=== PATIENT | female | born 1940 | race Caucasian/White ===

== ENCOUNTER 2018-04-30 16:58 | Emergency (ER) | payer MEDICARE ==
[2018-04-30] MEDS ORDERED: NORMAL SALINE 1000 ML 1,000 ML IV ONE (17:43)
--- NOTE | 2018-04-30 17:46 | ER Document Report ---
ED Medical Screen (RME) - General Chief Complaint: General Weakness Stated Complaint: FAILURE TO THRIVE Time Seen by Provider: 04/30/18 17:27 TRAVEL OUTSIDE OF THE [place] IN LAST 30 DAYS: No - HPI Patient complains to provider of: Labile blood sugars and fatigue Onset: Other - This 77-year-old female has a extensive past medical history significant for gastric cancer with a fistula as well as diabetes which is been poorly controlled decreased appetite over the last several weeks and now 20 pounds of weight loss over the last month. She has had terrible persistent pain from an inability to control her blood sugars eat or drink. Her daughter is concerned because it seems like her mother is declining. - Related Data Allergies/Adverse Reactions: hydrocodone [Hydrocodone] Allergy (Severe, Verified 04/30/18 17:41) Anxiety Past Medical History - Social History Chew tobacco use (# tins/day): No Frequency of alcohol use: None Drug Abuse: None - Past Medical History Cardiac Medical History: Reports: Hx Hypertension - on meds Denies: Hx Atrial Fibrillation, Hx Congestive Heart Failure, Hx Coronary Artery Disease, Hx Heart Attack, Hx Hypercholesterolemia, Hx Peripheral Vascular Disease, Hx Pulmonary Embolism, Hx Heart Murmur Pulmonary Medical History: Reports: Hx COPD, Hx Pneumonia - hx of Denies: Hx Asthma, Hx Bronchitis, Hx Respiratory Failure, Hx Sleep Apnea, Hx Tuberculosis Neurological Medical History: Endocrine Medical History: Reports: Hx Diabetes Mellitus Type 2. Denies: Hx Graves' Disease, Hx Hyperthyroidism, Hx Hypothyroidism Renal/ Medical History: Denies: Hx Peritoneal Dialysis Malignancy Medical History: Denies: Hx Lung Cancer GI Medical History: Reports: Hx Diverticulitis, Hx Gastroesophageal Reflux Disease. Denies: Hx Crohn's Disease, Hx Hepatitis, Hx Hiatal Hernia, Hx Irritable Bowel, Hx Liver Failure, Hx Pancreatitis, Hx Ulcer Musculoskeltal Medical History: Reports Hx Arthritis - generalized, Denies Hx Fibromyalgia, Denies Hx Muscular Dystrophy Psychiatric Medical History: Reports: Hx Depression Denies: Hx Bipolar Disorder, Hx Post Traumatic Stress Disorder, Hx Schizophrenia Traumatic Medical History: Denies: Hx Fractures Infectious Medical History: Denies: Hx Hepatitis Past Surgical History: Reports: Hx Abdominal Surgery, Hx Appendectomy, Hx Cholecystectomy, Hx Colostomy, Hx Herniorrhaphy, Hx Hysterectomy. Denies: Hx Bowel Surgery, Hx Section, Hx Gastric Bypass Surgery, Hx Mastectomy, Hx Open Heart Surgery, Hx Pacemaker, Hx Tubal Ligation - Immunizations Hx Diphtheria, Pertussis, Tetanus Vaccination: No Physical Exam - Vital signs Vitals: Temp Resp BP Pulse Ox 98.2 F 20 113/64 96 04/30/18 17:09 04/30/18 17:09 04/30/18 17:09 04/30/18 17:09 Course - Re-evaluation Re-evalutation: 04/30/18 17:45 This 77-year-old female with past medical history significant for gastric cancer as well as multiple other health problems presents for evaluation of labile blood sugars and fatigue. Her abdominal examination is remarkable for diffuse tenderness throughout, she has had episodes of vomiting as well. Given that she is got a history with abnormal anatomy multiple instrumentations through the abdomen and pelvis will investigate for potential fistula development. We will obtain screening labs as well as this patient may have electrolyte deficiency because of her decreased p.o. intake. We will plan to check Accu-Chek as well because of her inability to control her blood sugars at home. Patient be further evaluated disposition through the main emergency department. - Vital Signs Vital signs: Temp Pulse Resp BP Pulse Ox 98.2 F 20 113/64 96 04/30/18 17:09 04/30/18 17:09 04/30/18 17:09 04/30/18 17:09 Doctor's Discharge - Discharge Referrals: JOLYNN HOYT MD [Primary Care Provider] - Follow up as needed
[2018-04-30 18:31] LABS: ABSOLUTE BASOPHILS # (AUTO) 0.1 10^3/uL (0.0-0.2); ABSOLUTE LYMPHOCYTES (AUTO) 2.7 10^3/uL (0.5-4.7); ABSOLUTE MONOCYTES (AUTO) 1.3 10^3/uL (0.1-1.4); ABSOLUTE NEUT (AUTO) 9.2 10^3/uL (1.7-8.2); BASOPHILS % (AUTO) 0.4 % (0-2); EOSINOPHILS % (AUTO) 0.2 % (0-6); HEMATOCRIT 49.4 % (36.0-47.0); HEMOGLOBIN 16.8 g/dL (12.0-15.5); LYMPHOCYTES % (AUTO) 20.2 % (13-45); MEAN CORPUSCULAR HEMOGLOBIN 31.2 pg (27.0-33.4); MEAN CORPUSCULAR VOLUME 92 fl (80-97); MONOCYTES % (AUTO) 9.7 % (3-13); PLATELET COUNT 381 10^3/uL (150-450); RED BLOOD COUNT 5.38 10^6/uL (3.72-5.28); RED CELL DISTRIBUTION WIDTH 15.5 % (11.5-14.0); SEGMENTED NEUTROPHILS % (AUTO) 69.5 % (42-78); TOTAL CELLS COUNTED % (AUTO) 100 %; WHITE BLOOD COUNT 13.3 10^3/uL (4.0-10.5)
[2018-04-30 18:46] LABS: AMORPHOUS SEDIMENT,URINE TRACE /HPF; APPEARANCE,URINE CLOUDY; BILIRUBIN,URINE NEGATIVE (NEGATIVE); COLOR,URINE AMBER; GLUCOSE, URINE NEGATIVE (NEGATIVE); KETONES,URINE TRACE mg/dL (NEGATIVE); LEUKOCYTE ESTERASE,URINE MODERATE (NEGATIVE); NITRITE,URINE NEGATIVE (NEGATIVE); PROTEIN,URINE NEGATIVE (NEGATIVE)
[2018-04-30] MEDS ORDERED: OXYCODONE-ACETAMINOPHEN 5-325 MG TABLET PO ONE (18:57)
--- NOTE | 2018-04-30 19:31 | ER Document Report ---
ED General - General Chief Complaint: General Weakness Stated Complaint: FAILURE TO THRIVE Time Seen by Provider: 04/30/18 17:27 Notes: Patient is a 77-year-old female with a past medical history of type 2 diabetes, hypertension, prior gastric malignancy, prior gastric perforation who presents with multiple complaints. Her main concern is that the she is having variable blood sugars but is most concerned about periods of hypoglycemia. She has been taking all medications as prescribed by her general doctor. She has not been able to contact her general doctor regarding these concerns as he is currently out of town. The patient apparently today had another episode of generalized abdominal pain. The patient has been having similar episodes of abdominal pain since having surgery for a gastric perforation in November of this year. She states that nothing was also different regarding today's episode abdominal pain which she describes as a cramping, aching, diffuse pain that has now mostly resolved. The pain is triggered or worsened by periods of oral intake. Nothing seems to improve the pain. She has not followed up with her surgeon or GI regarding this ongoing issue. TRAVEL OUTSIDE OF THE [place] IN LAST 30 DAYS: No - Related Data Allergies/Adverse Reactions: hydrocodone [Hydrocodone] Allergy (Severe, Verified 04/30/18 17:41) Anxiety Past Medical History - General Information source: Patient - Social History Smoking Status: Never Smoker Chew tobacco use (# tins/day): No Frequency of alcohol use: None Drug Abuse: None Lives with: Family Family History: Reviewed & Not Pertinent Patient has suicidal ideation: No Patient has homicidal ideation: No - Past Medical History Cardiac Medical History: Reports: Hx Hypertension - on meds Denies: Hx Atrial Fibrillation, Hx Congestive Heart Failure, Hx Coronary Artery Disease, Hx Heart Attack, Hx Hypercholesterolemia, Hx Peripheral Vascular Disease, Hx Pulmonary Embolism, Hx Heart Murmur Pulmonary Medical History: Reports: Hx COPD, Hx Pneumonia - hx of Denies: Hx Asthma, Hx Bronchitis, Hx Respiratory Failure, Hx Sleep Apnea, Hx Tuberculosis Neurological Medical History: Endocrine Medical History: Reports: Hx Diabetes Mellitus Type 2. Denies: Hx Graves' Disease, Hx Hyperthyroidism, Hx Hypothyroidism Renal/ Medical History: Denies: Hx Peritoneal Dialysis Malignancy Medical History: Denies: Hx Lung Cancer GI Medical History: Reports: Hx Diverticulitis, Hx Gastroesophageal Reflux Disease. Denies: Hx Crohn's Disease, Hx Hepatitis, Hx Hiatal Hernia, Hx Irritable Bowel, Hx Liver Failure, Hx Pancreatitis, Hx Ulcer Musculoskeletal Medical History: Reports Hx Arthritis - generalized, Denies Hx Fibromyalgia, Denies Hx Muscular Dystrophy Psychiatric Medical History: Reports: Hx Depression Denies: Hx Bipolar Disorder, Hx Post Traumatic Stress Disorder, Hx Schizophrenia Traumatic Medical History: Denies: Hx Fractures Infectious Medical History: Denies: Hx Hepatitis Past Surgical History: Reports: Hx Abdominal Surgery, Hx Appendectomy, Hx Cholecystectomy, Hx Colostomy, Hx Herniorrhaphy, Hx Hysterectomy. Denies: Hx Bowel Surgery, Hx Section, Hx Gastric Bypass Surgery, Hx Mastectomy, Hx Open Heart Surgery, Hx Pacemaker, Hx Tubal Ligation - Immunizations Hx Diphtheria, Pertussis, Tetanus Vaccination: No Review of Systems - Review of Systems Notes: Constitutional: Negative for fever. Positive for weight loss. HENT: Negative for sore throat. Eyes: Negative for visual changes. Cardiovascular: Negative for chest pain. Respiratory: Negative for shortness of breath. Gastrointestinal: Positive for abdominal pain, vomiting and diarrhea Genitourinary: Negative for dysuria. Musculoskeletal: Negative for back pain. Skin: Negative for rash. Neurological: Negative for headaches, weakness or numbness. 10 point ROS negative except as marked above and in HPI. Physical Exam - Vital signs Vitals: Temp Resp BP Pulse Ox 98.2 F 20 113/64 96 04/30/18 17:09 04/30/18 17:09 04/30/18 17:09 04/30/18 17:09 Interpretation: Normal Notes: PHYSICAL EXAMINATION: GENERAL: Well-appearing, well-nourished and in no acute distress. HEAD: Atraumatic, normocephalic. EYES: Pupils equal round and reactive to light, extraocular movements intact, sclera anicteric, conjunctiva are normal. ENT: nares patent, oropharynx clear without exudates. Mild dry mucous membranes. NECK: Normal range of motion, supple without lymphadenopathy LUNGS: Breath sounds clear to auscultation bilaterally and equal. No wheezes rales or rhonchi. HEART: Regular rate and rhythm without murmurs ABDOMEN: Soft, nontender, normoactive bowel sounds. No guarding, no rebound. No masses appreciated. EXTREMITIES: Normal range of motion, no pitting or edema. No cyanosis. NEUROLOGICAL: No focal neurological deficits. Moves all extremities spontaneously and on command. PSYCH: Normal mood, normal affect. SKIN: Warm, Dry, normal turgor, no rashes or lesions noted. Course - Re-evaluation Re-evalutation: 04/30/18 19:24 Patient presents with multiple, chronic complaints. 1. Variable blood sugars: The patient reports that she has highly variable blood sugars but is most concerned about periods of hypoglycemia particularly in the morning where she is dipping down into ranges of 20-50. Family also reports near syncopal episodes in the context of hypoglycemia. She takes metformin, glimepiride, Lantus. I have instructed the patient to discontinue glimepiride and Lantus as the risk of hypoglycemia far outweighs a short period of mild hyperglycemia and have encouraged him to follow-up with their primary doctor regarding long-term management of her blood sugar medications. 2. Chronic abdominal pain, anorexia: The patient reports since having a gastric perforation in November that she has had chronic generalized abdominal discomfort with pain with oral intake. She has had a 20 pound weight loss over that period of time. The patient states that nothing is necessarily new or different about the pain today but that she feels like she is wasting away. The family has requested imaging of her abdomen and pelvis which will be performed per the request. She has no focal abdominal tenderness, rebound or guarding. Low clinical suspicion for acute pathology although concerns for underlying malignancy, gastric narrowing, versus gastroparesis are high. 04/30/18 21:32 CT the abdomen pelvis is noted to be unremarkable. Patient has continued to do well here in the emergency department. He is tolerating oral intake without difficulty. At this time will discharge with return precautions and follow-up recommendations. Verbal discharge instructions given a the bedside and opportunity for questions given. Medication warnings reviewed. Patient is in agreement with this plan and has verbalized understanding of return precautions and the need for primary care follow-up in the next 24-72 hours. - Vital Signs Vital signs: Temp Pulse Resp BP Pulse Ox 98.2 F 20 113/64 96 04/30/18 17:09 04/30/18 17:09 04/30/18 17:09 04/30/18 17:09 - Laboratory Result Diagrams: 04/30/18 17:59 04/30/18 19:26 Laboratory results interpreted by me: 04/30/18 04/30/18 04/30/18 17:59 17:59 18:03 WBC 13.3 H RBC 5.38 H Hgb 16.8 H Hct 49.4 H RDW 15.5 H Absolute Neutrophils 9.2 H Potassium Chloride Carbon Dioxide Creatinine Glucose POC Glucose 201 H Urine Ketones TRACE H Urine Urobilinogen 4.0 H Ur Leukocyte Esterase MODERATE H 04/30/18 19:26 WBC RBC Hgb Hct RDW Absolute Neutrophils Potassium 3.3 L Chloride 94 L Carbon Dioxide 31 H Creatinine 0.47 L Glucose 175 H POC Glucose Urine Ketones Urine Urobilinogen Ur Leukocyte Esterase - Diagnostic Test Radiology reviewed: Reports reviewed Discharge - Discharge Clinical Impression: Chronic abdominal pain, Weight loss Type 2 diabetes mellitus Qualifiers: Diabetes mellitus halfway insulin use: with ad terminal makeup operator use Diabetes mellitus complication status: with unspecified complications Qualified Code(s): E11.8 - Type 2 diabetes mellitus with unspecified complications; Z79.4 - custodial ( current) use of insulin; Z79.4 - custodial (current) use of insulin; Z79.4 - custodial (current) use of insulin; Z79.4 - watermelon inspector (current) use of insulin Nausea and vomiting Qualifiers: Vomiting type: unspecified Vomiting Intractability: non-intractable Qualified Code(s): R11.2 - Nausea with vomiting, unspecified Condition: Good Disposition: HOME, SELF-CARE Additional Instructions: In regards to your variable blood sugars: Discontinue Lantus and glimepiride. Take only metformin. Please check your blood sugar 3 times daily for the next 3 days. If your blood sugars are consistently greater than 200 please restart the glimepiride. Your CT scan of the abdomen pelvis is normal today. As we discussed, you need to follow-up with a GI doctor for consideration of endoscopy and colonoscopy given your chronic nausea and abdominal pain.Please begin taking famotidine 40 mg in the morning and 40 mg at night. This medicine can be purchased directly [id number]. Please also take Carafate before meals. Please return to emergency department immediately if you have worsening of your pain, shortness of breath, vomiting, become unable to exert yourself due to pain or difficulty breathing, you pass out, or have any pain that radiates into your arms, jaw, or back. Please also return if you have any additional symptoms that are concerning to you. Prescriptions: Sucralfate [Carafate 1 gm Tablet] 1 gm PO ACHS #120 tablet Referrals: JOLYNN HOYT MD [NO LOCAL MD] - Follow up as needed
[2018-04-30 19:56] LABS: ALANINE AMINOTRANSFERASE 18 U/L (9-52); ALKALINE PHOSPHATASE 71 U/L (38-126); ANION GAP 13 (5-19); ASPARTATE AMINO TRANSFERASE 16 U/L (14-36); BILIRUBIN,DIRECT 0.3 mg/dL (0.0-0.4); BILIRUBIN,TOTAL 0.5 mg/dL (0.2-1.3); BLOOD UREA NITROGEN 13 mg/dL (7-20); CALCIUM 9.7 mg/dL (8.4-10.2); CARBON DIOXIDE 31 mmol/L (22-30); CHLORIDE 94 mmol/L (98-107); GLUCOSE 175 mg/dL (75-110); LIPASE 35.9 U/L (23-300); POTASSIUM 3.3 mmol/L (3.6-5.0); SODIUM 137.8 mmol/L (137-145); TOTAL PROTEIN 7.3 g/dL (6.3-8.2)
--- NOTE | 2018-04-30 21:16 | RADIOLOGY REPORT (SQ) ---
EXAM DESCRIPTION: CT ABD/PELVIS WITH IV ORAL COMPLETED DATE/TIME: 04/30/2018 8:37 pm REASON FOR STUDY: generalized abdominal pain, vomiting COMPARISON: 11/12/2014 TECHNIQUE: CT scan of the abdomen and pelvis performed using helical scanning technique with dynamic intravenous contrast injection. No oral contrast. Images reviewed with lung, soft tissue, and bone w indows. Reconstructed coronal and sagittal MPR images reviewed. Delayed images for evaluation of the urinary system also acquired. All images stored on PACS. All CT scanners at this facility use dose modulation, iterative reconstruction, and/or weight based d osing when appropriate to reduce radiation dose to as low as reasonably achievable (ALARA). [facility]: Dose Right [facility]: CareDose [facility]: Dose Right [facility]: Teradose 4D [facility]: Ascendify CONTRAST TYPE AND DOSE: contrast/concentration: Isovue 350.00 mg/ml; Total Contrast Delivered: 66.0 ml; Total Saline Delivered: 65.0 ml RENAL FUNCTION: GFR > 60. RADIATION DOSE: CT Rad equipment meets quality standard of care and radiation dose reduction techniq ues were employed. CTDIvol: 7.1 - 9.9 mGy. DLP: 896 mGy-cm.. LIMITATIONS: None. FINDINGS: LOWER CHEST: No acute findings. LIVER: Normal size. No enhancing masses. Similar minimally dilated ducts. SPLEEN: Normal size. No focal lesions. PANCREAS: No masses identified. No significant calcifications. No adjacent inflammation or peripancre atic fluid collections. Pancreatic duct not dilated. GALLBLADDER: Surgically absent. ADRENAL GLANDS: No significant masses. RIGHT KIDNEY AND URETER: No cysts identified. No solid masses identified. No calcified stones. No hyd ronephrosis or hydroureter. LEFT KIDNEY AND URETER: No cysts identified. No solid masses identified. No calcified stones. No hydr onephrosis or hydroureter. AORTA AND VESSELS: No aneurysm. No dissection. Renal arteries, SMA, celiac without significant stenos is. RETROPERITONEUM: No bulky retroperitoneal adenopathy. BOWEL AND PERITONEAL CAVITY: No obstruction or inflammatory changes. No free fluid. APPENDIX: Not visualized. PELVIS: Prior hysterectomy. No free fluid. Unremarkable bladder. ABDOMINAL WALL: No masses. No hernias. BONES: No acute findings. OTHER: No other significant finding. IMPRESSION: NO ACUTE FINDINGS IN THE ABDOMEN OR PELVIS ON CT SCAN WITH IV CONTRAST. TECHNICAL DOCUMENTATION: JOB ID: [id number] Quality ID # [id number]: Final reports with documentation of one or more dose reduction techniques (e.g., Au tomated exposure control, adjustment of the mA and/or kV according to patient size, use of iterative reconstruction technique) 2010 [employer]- All Rights Reserved Reading location - IP/workstation name: [email or web address]
[2018-04-30 22:19] VITALS: BP 117/92
== END 2018-04-30 22:19 | disposition home or self-care (01) ==
LOC: ER 16:58
DX: R10.84 Generalized abdominal pain (principal); G89.29 Other chronic pain; R11.2 Nausea with vomiting, unspecified; E11.649 Type 2 diabetes mellitus with hypoglycemia without coma; Z79.4 Long term (current) use of insulin; J44.9 Chronic obstructive pulmonary disease, unspecified; R19.7 Diarrhea, unspecified; R63.0 Anorexia; I10 Essential (primary) hypertension; Z79.899 Other long term (current) drug therapy
CPT/HCPCS: 99284; 96360; 96361; 36415; 87086; 82962; 83690; 85025; 87088; 80053; 81001; 87186; 74177; A9270; J7030

== ENCOUNTER 2019-01-03 10:08 | Day surgery (SDC) | payer MEDICARE ==
[2018-12-27 09:05] LABS: HEMATOCRIT 40.7 % (36.0-47.0); HEMOGLOBIN 13.9 g/dL (12.0-15.5); MEAN CORPUSCULAR HGB CONC 34.1 g/dL (32.0-36.0); MEAN CORPUSCULAR VOLUME 94 fl (80-97); PLATELET COUNT 289 10^3/uL (150-450); RED BLOOD COUNT 4.34 10^6/uL (3.72-5.28); RED CELL DISTRIBUTION WIDTH 15.2 % (11.5-14.0); WHITE BLOOD COUNT 10.3 10^3/uL (4.0-10.5)
[2018-12-27 11:02] LABS: ANION GAP 11 (5-19); BLOOD UREA NITROGEN 19 mg/dL (7-20); CALCIUM 9.5 mg/dL (8.4-10.2); CARBON DIOXIDE 28 mmol/L (22-30); CHLORIDE 100 mmol/L (98-107); GLUCOSE 236 mg/dL (75-110); POTASSIUM 3.9 mmol/L (3.6-5.0); SODIUM 139.2 mmol/L (137-145)
--- NOTE | 2018-12-27 12:27 | EKG REPORT ---
SEVERITY:- BORDERLINE ECG - SINUS TACHYCARDIA LOW VOLTAGE PRECORDIAL LEADS. PACS : Confirmed by: Philippe Sepulveda MD 27-Dec-2018 12:26:50
[~2019-01-03 10:08] MED LIST: ACETAMINOPHEN 325 MG TABLET PO PRN; LACTATED RINGERS 1000 ML IV PRN; LIDOCAINE 0.5% INJ-PF (5 MG/ML) 50 ML SDV SUBCUT PRN; NORMAL SALINE 1000 ML 1,000 ML IV PRN
[2019-01-03 11:31] LABS: INTERNATIONAL RATION (INR) 1.06; PROTHROMBIN TIME 14.3 SEC (11.4-15.4)
[2019-01-03 11:32] LABS: PARTIAL THROMBOPLASTIN TIME 28.9 SEC (23.5-35.8)
[2019-01-03] MEDS ORDERED: PROPOFOL INJ 200 MG/20 ML VIAL IV ONE (12:28)
[2019-01-03] MEDS ORDERED: MEPERIDINE HCL/PF INJ 25 MG/1 ML DISP.SYRIN IV PRN (12:59)
[2019-01-03] MEDS ORDERED: PROMETHAZINE HCL INJ 25 MG/1 ML VIAL IV PRN (12:59)
[2019-01-03] MEDS ORDERED: DIPHENHYDRAMINE HCL 50 MG/ML VIAL IV PRN (12:59)
--- NOTE | 2019-01-03 13:12 | Discharge Summary ---
Discharge Summary (SDC) - Discharge Final Diagnosis: residual tubular adenoma Date of Surgery: 01/03/19 Discharge Date: 01/03/19 Condition: Good Forms: ASU Anesthesia D/C Instruction, Discharge POC-Surgical Service Treatment or Instructions: [address] [address] POST ENDOSCOPY DISCHARGE INSTRUCTIONS 1. Diet: Start clear liquids that a regular diet as tolerated. 2. Resume all preoperative medications. All oral anticoagulants and aspirins can be resumed 24 hours after procedure. 3. If a polypectomy was performed some bleeding per rectum may occur. This should stop within 3 days. If not, please contact the office. 4. If you had a colonoscopy you may experience some bloating and delayed return of normal bowel function for several days, your regular bowel movement pattern should resume within a week. 5. Please contact [facility] at to make an appointment with Dr. Forrester for 1 to 3 weeks following procedure. 6. If you have any questions or concerns regarding your care,treatment plan or follow up, please contact our office. 7. Repeat colonoscopy will be determined based off path report. Referrals: NASIR FORRESTER MD [ACTIVE STAFF] - Discharge Diet: Other (Comments) - clear liquids then progress Discharge Activity: Balance Activity w/Rest, No Lifting Over 10 Pounds, Walk Frequently Report the Following to Your Physician Immediately: Nausea, Vomiting, Increase in Pain, Fever over 101 Degrees, Unusual Bleeding, Drainage-Foul Smelling
--- NOTE | 2019-01-03 13:19 | Operative Report ---
Operative Report DATE OF SURGERY: 01/03/19 PREOPERATIVE DIAGNOSIS: 1. History of sigmoid colectomy colostomy colostomy ta [place] for diverticular disease. 2. History of colon polyps with partial endoscopic removal of tubular adenoma POSTOPERATIVE DIAGNOSIS: Same with the residual adenoma at the inked spot right colon; intact colorectal anastomosis. Rare diverticulum. OPERATION: 1. Total colonoscopy to cecum. 2. Biopsy of residual sessile growth at the inked spot, right colon SURGEON: NASIR ROSALES ANESTHESIA: LMAC TISSUE REMOVED OR ALTERED: Mucosal biopsies COMPLICATIONS: None ESTIMATED BLOOD LOSS: Scant INTRAOPERATIVE FINDINGS: See below PROCEDURE: Obtaining informed consent the patient was taken from the preoperative holding area to the main endoscopy suite where monitoring devices were attached to the patient. Plan and surgical timeout were conducted The patient was placed in the left lateral decubitus position with knees to chest. A perianal examination was performed. There was no visible or palpable anorectal pathology. Sphincter tone was felt to be normal. There were external hemorrhoids, collapsed. The flexible adult colonoscope was advanced through the anal rectal canal, all the way to the cecum. This was ascertained by palpation of the intra-abdominal wall and transillumination of the anterior abdominal wall. This was an excellent study on the well-prepped bowel. The colonoscope was withdrawn slowly and methodically checked and the mucosa carefully. It would appear to be the ascending colon was a deliberately inked spot surrounding a residual, very sessile irregular mucosal growth consistent with a previous adenomatous polyp. Photos were taken. The extent of the sessile growth was difficult to ascertain, but may have been up to 2 cm or more. Several biopsies were taken. Bleeding was. It was felt that this lesion was not suitable for endoscopic removal. The scope was withdrawn from the rest of the colon. There was no evidence of tumor, stricture, bleeding or other polyp. There were scattered diverticulosis just proximal to the colorectal staple anastomosis. The scope was slowly withdrawn through the anal rectal canal. Complete visualization of the rectum was achieved with photodocumentation. The scope was withdrawn to the patient's anus. The patient tolerated the procedure well and was taken to the recovery area in stable condition. The planned surveillance colonoscopy versus other definitive intervention determined based on the final pathology report.
[2019-01-03 14:47] VITALS: BP 140/74
== END 2019-01-03 14:25 | disposition home or self-care (01) ==
LOC: OROUT 10:08
PROVIDERS: ATTEND Surgery
DX: D12.6 Benign neoplasm of colon, unspecified (principal); R63.4 Abnormal weight loss; Z86.010 Personal history of colon polyps; Z79.01 Long term (current) use of anticoagulants; E11.9 Type 2 diabetes mellitus without complications; Z85.028 Personal history of other malignant neoplasm of stomach; I10 Essential (primary) hypertension; I48.91 Unspecified atrial fibrillation; Z87.891 Personal history of nicotine dependence; Z79.84 Long term (current) use of oral hypoglycemic drugs; Z79.899 Other long term (current) drug therapy; J44.9 Chronic obstructive pulmonary disease, unspecified
CPT/HCPCS: 45380; 93005; 36415 ×2; 82962; 84132; 85027; 85610; 85730; 80048; 88305 ×2; 93010; J2704; 811

== ENCOUNTER 2019-03-26 09:08 | Day surgery (SDC) | payer MEDICARE ==
[2019-03-21 11:02] LABS: HEMATOCRIT 45.1 % (36.0-47.0); HEMOGLOBIN 14.6 g/dL (12.0-15.5); MEAN CORPUSCULAR HEMOGLOBIN 30.4 pg (27.0-33.4); MEAN CORPUSCULAR HGB CONC 32.3 g/dL (32.0-36.0); MEAN CORPUSCULAR VOLUME 94 fl (80-97); PLATELET COUNT 292 10^3/uL (150-450); RED CELL DISTRIBUTION WIDTH 14.8 % (11.5-14.0); WHITE BLOOD COUNT 12.5 10^3/uL (4.0-10.5)
[2019-03-21 11:08] LABS: APPEARANCE,URINE CLOUDY; BILIRUBIN,URINE NEGATIVE (NEGATIVE); COLOR,URINE YELLOW; GLUCOSE, URINE NEGATIVE (NEGATIVE); KETONES,URINE TRACE mg/dL (NEGATIVE); LEUKOCYTE ESTERASE,URINE LARGE (NEGATIVE); NITRITE,URINE NEGATIVE (NEGATIVE); PROTEIN,URINE NEGATIVE (NEGATIVE); URINE SPECIFIC GRAVITY 1.019; UROBILINOGEN,URINE NEGATIVE mg/dL (<2.0)
[2019-03-21 11:24] LABS: ADD MANUAL MICROSCOPIC YES
[2019-03-21 11:25] LABS: BACTERIA,URINE 3+ /HPF; WBC,URINE 50-100 /HPF
--- NOTE | 2019-03-21 13:26 | EKG REPORT ---
SEVERITY:- ABNORMAL ECG - SINUS TACHYCARDIA ATRIAL PREMATURE COMPLEX FIRST DEGREE AV BLOCK : Confirmed by: Philippe Sepulveda MD 21-Mar-2019 13:25:48
--- NOTE | 2019-03-21 13:51 | RADIOLOGY REPORT (SQ) ---
EXAM DESCRIPTION: CHEST PA/LATERAL COMPLETED DATE/TIME: 03/21/2019 11:44 am REASON FOR STUDY: PRE-OP COMPARISON: 06/18/2015 NUMBER OF VIEWS: Two view. TECHNIQUE: Frontal and lateral radiographic views of the chest acquired. LIMITATIONS: None. FINDINGS: LUNGS AND PLEURA: Mild diffuse interstitial change asymmetrically greater involving the l ower lung zones. No focal infiltrates. No masses or effusions. MEDIASTINUM AND HILAR STRUCTURES: No masses or contour abnormalities. HEART AND VASCULATURE: Heart normal size. No evidence for failure. BONY STRUCTURES: No acute findings. HARDWARE: None. OTHER: No other significant finding. 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 Most likely chronic but sl ightly more prominent than on the previous chest x-ray of 2014. TECHNICAL DOCUMENTATION: JOB ID: [id number] [employer]- All Rights Reserved Reading location - IP/workstation name: [email or web address]
[~2019-03-26 09:08] MED LIST changes: -ACETAMINOPHEN 325 MG TABLET PO PRN; +DEXAMETHASONE SOD PHOSPHATE INJ 4 MG/1 ML VIAL ONE; +FENTANYL CITRATE INJ/PF 100 MCG/2 ML AMPUL ONE; +MIDAZOLAM 2 MG/2 ML INJ ONE; -NORMAL SALINE 1000 ML 1,000 ML IV PRN; +ONDANSETRON HCL INJ/PF 4 MG/2 ML SDV ONE; +PROPOFOL INJ 200 MG/20 ML VIAL IV ONE; +SUGAMMADEX SODIUM 200 MG/2 ML SDV IV ONE
[2019-03-26] MEDS ORDERED: METOPROLOL TARTRATE 25 MG TABLET ONE (09:51)
[2019-03-26] MEDS ORDERED: CEFAZOLIN 1 GM/D5W RTU 1 GM/50 ML RTUPB IV ONE (10:07)
[2019-03-26 10:11] LABS: INTERNATIONAL RATION (INR) 1.07; PARTIAL THROMBOPLASTIN TIME 29.2 SEC (23.5-35.8); PROTHROMBIN TIME 13.9 SEC (11.4-15.4)
[2019-03-26] MEDS ORDERED: MEPERIDINE HCL/PF INJ 25 MG/1 ML DISP.SYRIN IV PRN (10:53)
[2019-03-26] MEDS ORDERED: MORPHINE SULFATE 10 MG/ML INJ IV PRN (10:53)
[2019-03-26] MEDS ORDERED: FENTANYL CITRATE INJ/PF 100 MCG/2 ML AMPUL IV PRN ×2 (10:53)
[2019-03-26] MEDS ORDERED: ONDANSETRON HCL INJ/PF 4 MG/2 ML SDV IV PRN (10:53)
[2019-03-26] MEDS ORDERED: DIPHENHYDRAMINE HCL 50 MG/ML VIAL IV PRN (10:53)
[2019-03-26] MEDS ORDERED: PROMETHAZINE HCL INJ 25 MG/1 ML VIAL IV PRN ×2 (10:53)
[2019-03-26] MEDS ORDERED: FENTANYL CITRATE INJ/PF 100 MCG/2 ML AMPUL ONE ×3 (11:48→13:09)
--- NOTE | 2019-03-26 12:10 | OPERATIVE REPORT E ---
Operative Report NAME: CORI SHORE : 1940 AGE: 78Y DATE OF SURGERY: 03/26/2019 ROOM: PREOPERATIVE DIAGNOSIS: CYSTOCELE, RECTOCELE, AND PELVIC ORGAN PROLAPSE AND DOUGLAS. POSTOPERATIVE DIAGNOSIS: CYSTOCELE, RECTOCELE, AND PELVIC ORGAN PROLAPSE AND DOUGLAS. OPERATION: TVT, A and P repair and a vaginal sacrospinous suspension. SURGEON: Isabela BENTON M.D. ANESTHESIA: General. TISSUE REMOVED OR ALTERED: No tissue was removed and sent to pathology. ESTIMATED BLOOD LOSS: Less than 50 mL. PROCEDURE: Patient placed in the dorsal lithotomy position, prepped and draped in sterile fashion. A TVT was accomplished by grasping the vaginal mucosa approximately a centimeter above the urethra and sharply in the midline dissecting the underlying vesicovaginal tissue to the posterior aspect of the symphysis *------*. Two puncture wounds were made above the symphysis and application of needles were passed down from the top and out through the vagina defect. Cystoscopy was then performed and no foreign bodies being noted. The WARREN sling was then placed on the end of the needles and pulled back through. A pair of Hernandes scissors were kept on the urethra for tension replacement. Defect was then closed with running suture of 2-0 Vicryl. The excess tape was severed at the skin line and this was closed with surgical glue. The anterior repair was accomplished by grasping the vaginal mucosa slightly below that first incision, divided in the midline just above the cuff. Underlying vesicovaginal tissue was bluntly and sharply divided. The underlying vesicovaginal tissue was plicated in the midline with interrupted 2-0 Vicryl. Excess vaginal mucosa was then removed and the defect closed with running suture of 2-0 Vicryl. Posterior repair was accomplished by grasping the vagina at the remnants of the hymenal ring, entering cross-goldsmith, dividing in the midline to just above the cuff. Underling rectovaginal tissue was bluntly and sharply divided. These and the Anchorsure were placed into the right sacrospinous ligament and the other end plicated into the apex of the vagina. The underlying rectovaginal tissue then plicated in the midline with interrupted 2-0 Vicryl. Excess mucosa was removed and the previously placed Anchorsure was then plicated and defect then closed with running suture of 2-0 Vicryl. Her urine remained clear throughout procedure. She was taken to recovery in good condition. DICTATING PHYSICIAN: Isabela BENTON M.D. [id number] PHY#: [id number] ID: [id number] JOB#: [id number] ACCT: [id number] cc:Isabela BENTON M.D. >
[2019-03-26] MEDS: FENTANYL CITRATE INJ/PF 100 MCG/2 ML AMPUL IV PRN ×3 (12:27→13:11)
[2019-03-26] MEDS ORDERED: IBUPROFEN 800 MG TABLET PO PRN (12:35)
[2019-03-26] MEDS ORDERED: HYDROMORPHONE HCL 2 MG TABLET PO PRN (12:38)
[2019-03-26] MEDS: HYDROMORPHONE HCL INJ/PF 2 MG/ML AMPULE ONE ×2 (12:50→13:04)
[2019-03-26] MEDS ORDERED: MIDAZOLAM 2 MG/2 ML INJ ONE (13:09)
[2019-03-26] MEDS ORDERED: SUCCINYLCHOLINE CHLORIDE INJ 200 MG/10 ML VIAL ONE (14:02)
[2019-03-26] MEDS ORDERED: ROCURONIUM BROMIDE INJ 50 MG/5 ML VIAL IV ONE (14:02)
[2019-03-26] MEDS ORDERED: LORAZEPAM 1 MG TABLET PO PRN (15:26)
[2019-03-26] MEDS ORDERED: TRAMADOL HCL 50 MG TABLET PO PRN (16:00)
[2019-03-26] MEDS: GABAPENTIN 300 MG CAPSULE PO SCH ×2 (17:28→21:53)
[2019-03-26] MEDS: METFORMIN HCL 500 MG TABLET PO SCH (17:28)
[2019-03-26] MEDS ORDERED: (PENDING PHARMACY ID) (Metformin Hcl [Metformin Hcl Er] 1,500 MG) PO SCH (18:00)
[2019-03-26] MEDS ORDERED: METFORMIN HCL 500 MG TABLET PO SCH (18:00)
[2019-03-26] MEDS ORDERED: GLIMEPIRIDE PO SCH (18:00)
[2019-03-26] MEDS ORDERED: GABAPENTIN PO SCH (18:00)
[2019-03-26] MEDS: HYDROMORPHONE HCL 2 MG TABLET PO PRN (20:15)
[2019-03-26] MEDS ORDERED: TRAZODONE HCL 50 MG TABLET PO SCH (22:00)
[2019-03-27] MEDS: HYDROMORPHONE HCL 2 MG TABLET PO PRN (00:17)
[2019-03-27] MEDS: GABAPENTIN 300 MG CAPSULE PO SCH (05:23)
--- NOTE | 2019-03-27 07:27 | Discharge Summary ---
Discharge Summary (SDC) - Discharge Final Diagnosis: cystocele/rectocele DOUGLAS Condition: Good Referrals: LINETTE GAN MD [Primary Care Provider] - CHEYENNE BENTON MD [ACTIVE STAFF] - 04/10/19 1:30 pm (PLEASE CALL THE OFFICE FOR ANY QUESTION. ) Discharge Diet: As Tolerated Respiratory Treatments at Home: Deep Breathing/Coughing Discharge Activity: Balance Activity w/Rest, No Driving, No Lifting Over 10 Pounds, Pelvic Rest, No tub bath Report the Following to Your Physician Immediately: Shortness of Breath, Increase in Pain, Fever over 101 Degrees, Unusual Bleeding, Redness, Swelling, Warmth, Increased Vaginal Bleed, IV Site Infection Signs, Urinary Infection Signs
[2019-03-27] MEDS ORDERED: METFORMIN HCL 500 MG TABLET PO SCH (08:00)
[2019-03-27 08:02] VITALS: BP 102/67
[2019-03-27] MEDS: METFORMIN HCL 500 MG TABLET PO SCH (08:45)
[2019-03-27] MEDS ORDERED: MAGNESIUM OXIDE PO SCH (10:00)
[2019-03-27] MEDS ORDERED: APIXABAN 5 MG PO SCH (10:00)
[2019-03-27] MEDS ORDERED: LOSARTAN POTASSIUM 50 MG TABLET PO SCH (10:00)
[2019-03-27] MEDS ORDERED: HYDROCHLOROTHIAZIDE 25 MG TABLET PO SCH (10:00)
[2019-03-27] MEDS ORDERED: MAGNESIUM OXIDE 400 MG TABLET PO SCH (10:00)
[2019-03-27] MEDS ORDERED: (PENDING PHARMACY ID) (Losartan/Hydrochlorothiazide [Hyzaar 100-25 Tablet] 1 TAB) PO SCH (10:00)
[2019-03-27] MEDS ORDERED: APIXABAN 5 MG TABLET PO SCH (10:00)
[2019-03-27] MEDS ORDERED: GLIMEPIRIDE 4 MG TABLET PO SCH (10:00)
== END 2019-03-27 09:40 | disposition home or self-care (01) ==
LOC: OROUT 09:08 → 2N 13:50 → OROUT 03-27 09:40
PROVIDERS: ATTEND Obstetrics & Gynecology Gynecology
DX: N39.3 Stress incontinence (female) (male) (principal); N81.89 Other female genital prolapse; N81.6 Rectocele; N81.11 Cystocele, midline; F17.210 Nicotine dependence, cigarettes, uncomplicated; I10 Essential (primary) hypertension; E11.9 Type 2 diabetes mellitus without complications; Z79.84 Long term (current) use of oral hypoglycemic drugs; Z79.01 Long term (current) use of anticoagulants
CPT/HCPCS: 93005; 36415 ×2; 82962; 84132; 85027; 85610; 85730; 81001; 71046; 93010; 00860; 57260; 57288; 57282; C1781; J2250; J0690; J3490 ×2; A9270 ×9; J1100; J3010; J1170; J0330; J2405; J2704; 860

== ENCOUNTER 2020-07-25 10:46 | Emergency (ER) | payer MEDICARE ==
--- NOTE | 2020-07-25 11:15 | ER Document Report ---
ED Medical Screen (RME) - General Chief Complaint: Syncope Stated Complaint: FALL/SHOULDER PAIN Time Seen by Provider: 07/25/20 11:05 Primary Care Provider: LINETTE GAN MD [Primary Care Provider] - Follow up as needed Notes: Patient is a 79-year-old female who presents emergency department with a chief complaint of right shoulder pain after a fall. Patient fell 3 days ago. She denies any loss of consciousness, but felt dizzy prior to falling. Patient reports multiple falls currently. She does go to pain management and medications were adjusted. She called her primary care provider and was referred to the emergency department for x-rays and to check to see if she is dehydrated. Exam: Tender right shoulder. I have greeted and performed a rapid initial assessment of this patient. A comprehensive ED assessment and evaluation of the patient, analysis of test results and completion of medical decision making process will be conducted by an additional ED providers. TRAVEL OUTSIDE OF THE [place] IN LAST 30 DAYS: No - Related Data Allergies/Adverse Reactions: hydrocodone [Hydrocodone] Allergy (Severe, Verified 07/25/20 11:04) Anxiety Home Medications: tramadol, losartan, gabapentin, myrbetriq, metformin Past Medical History - Social History Chew tobacco use (# tins/day): No Frequency of alcohol use: None Drug Abuse: None - Past Medical History Cardiac Medical History: Reports: Hx Hypertension Denies: Hx Atrial Fibrillation, Hx Congestive Heart Failure, Hx Coronary Artery Disease, Hx Heart Attack, Hx Hypercholesterolemia, Hx Peripheral Vascular Disease, Hx Pulmonary Embolism, Hx Heart Murmur Pulmonary Medical History: Denies: Hx Asthma, Hx Bronchitis, Hx COPD, Hx Pneumonia, Hx Respiratory Failure, Hx Sleep Apnea, Hx Tuberculosis Neurological Medical History: Denies: Hx Cerebrovascular Accident, Hx Seizures Endocrine Medical History: Reports: Hx Diabetes Mellitus Type 2. Denies: Hx Graves' Disease, Hx Hyperthyroidism, Hx Hypothyroidism Renal/ Medical History: Denies: Hx Peritoneal Dialysis Malignancy Medical History: Denies: Hx Lung Cancer GI Medical History: Reports: Hx Diverticulitis, Hx Gastroesophageal Reflux Disease. Denies: Hx Crohn's Disease, Hx Hepatitis, Hx Hiatal Hernia, Hx Irritable Bowel, Hx Liver Failure, Hx Pancreatitis, Hx Ulcer Musculoskeltal Medical History: Denies Hx Arthritis, Denies Hx Fibromyalgia, Denies Hx Muscular Dystrophy, Denies Hx Systemic Lupus Erythematosus Psychiatric Medical History: Reports: Hx Depression Denies: Hx Bipolar Disorder, Hx Post Traumatic Stress Disorder, Hx Schizophrenia Traumatic Medical History: Denies: Hx Fractures Infectious Medical History: Denies: Hx Hepatitis Past Surgical History: Reports: Hx Abdominal Surgery, Hx Appendectomy, Hx Cholecystectomy, Hx Colostomy, Hx Herniorrhaphy, Hx Hysterectomy. Denies: Hx Bowel Surgery, Hx Section, Hx Gastric Bypass Surgery, Hx Mastectomy, Hx Open Heart Surgery, Hx Pacemaker, Hx Tubal Ligation - Immunizations Hx Diphtheria, Pertussis, Tetanus Vaccination: Yes Doctor's Discharge - Discharge Referrals: LINETTE GAN MD [Primary Care Provider] - Follow up as needed
[2020-07-25] MEDS ORDERED: NORMAL SALINE 500 ML IV ONE (11:16)
--- NOTE | 2020-07-25 11:57 | RADIOLOGY REPORT (SQ) ---
EXAM DESCRIPTION: SHOULDER RIGHT 2 OR MORE VIEWS IMAGES COMPLETED DATE/TIME: 07/25/2020 11:46 am REASON FOR STUDY: fall; right shoulder pain COMPARISON: None. NUMBER OF VIEWS: Three views. TECHNIQUE: Internal rotation, external rotation, and Y view images acquired of the right shoulder. LIMITATIONS: None. FINDINGS: MINERALIZATION: Normal. BONES: No acute fracture. No worrisome bone lesions. JOINTS: No dislocation. VISUALIZED LUNGS AND RIBS: No pneumothorax. No rib fracture. SOFT TISSUES: No radiopaque foreign body. OTHER: No other significant finding. IMPRESSION: NEGATIVE STUDY OF THE RIGHT SHOULDER. NO RADIOGRAPHIC EVIDENCE OF ACUTE INJURY. TECHNICAL DOCUMENTATION: JOB ID: [id number] 2010 [employer]- All Rights Reserved Reading location - IP/workstation name: [email or web address]
--- NOTE | 2020-07-25 12:01 | RADIOLOGY REPORT (SQ) ---
EXAM DESCRIPTION: CHEST 2 VIEWS IMAGES COMPLETED DATE/TIME: 07/25/2020 11:46 am REASON FOR STUDY: fall COMPARISON: 03/21/2019 EXAM PARAMETERS: NUMBER OF VIEWS: two views TECHNIQUE: Digital Frontal and Lateral radiographic views of the chest acquired. RADIATION DOSE: NA LIMITATIONS: none FINDINGS: LUNGS AND PLEURA: Stable prominent interstitial markings. Focal nodular opacity in the ri ght upper lobe is unchanged from prior exam there is a small left effusion. No pneumothorax. MEDIASTINUM AND HILAR STRUCTURES: No masses or contour abnormalities. HEART AND VASCULAR STRUCTURES: Heart normal size. No evidence for failure. BONES: No acute findings. HARDWARE: None in the chest. OTHER: No other significant finding. IMPRESSION: No interval change in the chest. Prominent interstitial markings. Stable small left ef fusion. TECHNICAL DOCUMENTATION: JOB ID: [id number] 2010 [employer]- All Rights Reserved Reading location - IP/workstation name: [email or web address]
--- NOTE | 2020-07-25 12:25 | RADIOLOGY REPORT (SQ) ---
EXAM DESCRIPTION: CT HEAD WITHOUT IMAGES COMPLETED DATE/TIME: 07/25/2020 12:10 pm REASON FOR STUDY: fall COMPARISON: None. TECHNIQUE: Axial images acquired through the brain without intravenous contrast. Images reviewed wi th bone, brain and subdural windows. Additional sagittal and coronal reconstructions were generated. Images stored on PACS. All CT scanners at this facility use dose modulation, iterative reconstruction, and/or weight based d osing when appropriate to reduce radiation dose to as low as reasonably achievable (ALARA). [facility]: Dose Right [facility]: CareDose [facility]: Dose Right [facility]: Teradose 4D [facility]: [place] [employer] RADIATION DOSE: CT Rad equipment meets quality standard of care and radiation dose reduction techniq ues were employed. CTDIvol: 53.2 mGy. DLP: 1044 mGy-cm. mGy. LIMITATIONS: None. FINDINGS: VENTRICLES: Normal size and contour. CEREBRUM: Mild cortical atrophy. No masses. No hemorrhage. No midline shift. No evidence for acut e infarction. Few scattered areas of low density in the white matter most likely chronic small vessel ischemic changes. CEREBELLUM: No masses. No hemorrhage. No alteration of density. No evidence for acute infarction. EXTRAAXIAL SPACES: No fluid collections. No masses. ORBITS AND GLOBE: No intra- or extraconal masses. Normal contour of globe without masses. CALVARIUM: No fracture. PARANASAL SINUSES: No fluid or mucosal thickening. SOFT TISSUES: No mass or hematoma. OTHER: No other significant finding. IMPRESSION: Mild involutional changes and mild chronic microvascular ischemia. No acute intracrania l imaging findings. EVIDENCE OF ACUTE STROKE: NO. COMMENT: Quality ID # [id number]: Final reports with documentation of one or more dose reduction techniques (e.g., Automated exposure control, adjustment of the mA and/or kV according to patient size, use of iterative reconstruction technique) TECHNICAL DOCUMENTATION: JOB ID: [id number] 2010 [email or web address]- All Rights Reserved Reading location - IP/workstation name: [email or web address]
[2020-07-25 12:49] LABS: ABSOLUTE LYMPHOCYTES (AUTO) 1.5 10^3/uL (0.5-4.7); ABSOLUTE MONOCYTES (AUTO) 0.8 10^3/uL (0.1-1.4); ABSOLUTE NEUT (AUTO) 5.9 10^3/uL (1.7-8.2); BASOPHILS % (AUTO) 0.5 % (0-2); EOSINOPHILS % (AUTO) 0.3 % (0-6); HEMATOCRIT 43.6 % (36.0-47.0); HEMOGLOBIN 14.7 g/dL (12.0-15.5); LYMPHOCYTES % (AUTO) 18.6 % (13-45); MEAN CORPUSCULAR HEMOGLOBIN 31.9 pg (27.0-33.4); MEAN CORPUSCULAR HGB CONC 33.6 g/dL (32.0-36.0); MEAN CORPUSCULAR VOLUME 95 fl (80-97); MONOCYTES % (AUTO) 9.8 % (3-13); PLATELET COUNT 309 10^3/uL (150-450); RED CELL DISTRIBUTION WIDTH 14.7 % (11.5-14.0); SEGMENTED NEUTROPHILS % (AUTO) 70.8 % (42-78); TOTAL CELLS COUNTED % (AUTO) 100 %; WHITE BLOOD COUNT 8.3 10^3/uL (4.0-10.5)
[2020-07-25 13:01] LABS: ALBUMIN 3.9 g/dL (3.5-5.0); ALKALINE PHOSPHATASE 86 U/L (38-126); ANION GAP 8 (5-19); ASPARTATE AMINO TRANSFERASE 32 U/L (14-36); BILIRUBIN,DIRECT 0.6 mg/dL (0.0-0.4); BILIRUBIN,TOTAL 1.3 mg/dL (0.2-1.3); BLOOD UREA NITROGEN 13 mg/dL (7-20); CALCIUM 8.8 mg/dL (8.4-10.2); CARBON DIOXIDE 25 mmol/L (22-30); CHLORIDE 104 mmol/L (98-107); CREATINE KINASE 42 U/L (30-135); GLUCOSE 167 mg/dL (75-110); POTASSIUM 5.3 mmol/L (3.6-5.0); TOTAL PROTEIN 7.6 g/dL (6.3-8.2)
--- NOTE | 2020-07-25 13:27 | EKG REPORT ---
SEVERITY:- ABNORMAL ECG - SINUS TACHYCARDIA FIRST DEGREE AV BLOCK : Confirmed by: La Em MD 25-Jul-2020 13:26:17
--- NOTE | 2020-07-25 13:36 | ER Document Report ---
Entered by AMNA CARVALHO SCRIBE 07/25/20 1220 Acting as scribe for:ALINA MELENDEZ MD ED General - General Chief Complaint: Syncope Stated Complaint: SHOULDER PAIN Time Seen by Provider: 07/25/20 11:05 Primary Care Provider: LINETTE GAN MD [Primary Care Provider] - Follow up as needed Information source: Patient, [facility] Records Notes: This 79 year old female patient presents to the emergency department today with a chief complaint of right shoulder pain from a fall x3 days ago. Patient states she has fallen x3 times the past week from lightheadedness and denies loss of consciousness. Patient states she ambulates with a walker at home and lives with her . Patient reports chronic back pain, follows up with [facility] pain management, and takes Tramadol. Patient states she called her PCP about her recent falls and was told to visit the ED for scans to check if anything is broken. Patient states her pain today is at baseline. Denies any blurred vision, abdominal pain, or N/V. Patient reports history of DM type 2, HTN, Afib, and is not on any blood thinners. TRAVEL OUTSIDE OF THE [place] IN LAST 30 DAYS: No - Related Data Allergies/Adverse Reactions: hydrocodone [Hydrocodone] Allergy (Severe, Verified 07/25/20 11:04) Anxiety Home Medications: tramadol, losartan, gabapentin, myrbetriq, metformin Past Medical History - General Information source: Patient, [facility] Records - Social History Smoking Status: Unknown if Ever Smoked Chew tobacco use (# tins/day): No Frequency of alcohol use: None Drug Abuse: None Lives with: Family Family History: Reviewed & Not Pertinent Patient has homicidal ideation: No - Past Medical History Cardiac Medical History: Reports: Hx Atrial Fibrillation, Hx Hypertension Pulmonary Medical History: Reports: Hx COPD, Hx Pneumonia Endocrine Medical History: Reports: Hx Diabetes Mellitus Type 2 GI Medical History: Reports: Hx Diverticulitis, Hx Gastroesophageal Reflux Disease Psychiatric Medical History: Reports: Hx Depression Past Surgical History: Reports: Hx Abdominal Surgery, Hx Appendectomy, Hx Cholecystectomy, Hx Colostomy, Hx Herniorrhaphy, Hx Hysterectomy - Immunizations Hx Diphtheria, Pertussis, Tetanus Vaccination: Yes Review of Systems - Review of Systems Constitutional: No symptoms reported EENT: See HPI. denies: Blurred vision Cardiovascular: See HPI, Lightheaded Respiratory: No symptoms reported Gastrointestinal: See HPI. denies: Abdominal pain, Nausea, Vomiting Genitourinary: No symptoms reported Female Genitourinary: No symptoms reported Musculoskeletal: See HPI, Other - right shoulder pain Skin: No symptoms reported Hematologic/Lymphatic: No symptoms reported Neurological/Psychological: See HPI. denies: Lost consciousness -: Yes All other systems reviewed and negative Physical Exam - Vital signs Vitals: Temp Pulse Resp BP Pulse Ox 98.1 F 113 H 20 124/72 95 07/25/20 11:13 07/25/20 11:13 07/25/20 11:13 07/25/20 11:13 07/25/20 11:13 - General General appearance: Appears well, Alert - HEENT Head: Normocephalic, Atraumatic Eyes: Normal Pupils: PERRL Neck: Normal, Supple - Respiratory Respiratory status: No respiratory distress Chest status: Nontender Breath sounds: Normal Chest palpation: Normal - Cardiovascular Rhythm: Tachycardia Heart sounds: Normal auscultation Murmur: No - Abdominal Inspection: Normal Distension: No distension Bowel sounds: Normal Tenderness: Nontender - Extremities General upper extremity: Normal inspection, Normal ROM General lower extremity: Normal inspection, Normal ROM. No: Edema Shoulder: Other - No signs of trauma. No: Limited ROM - Neurological Neuro grossly intact: Yes Cognition: Normal Orientation: AAOx4 [place] Coma Scale Eye Opening: Spontaneous [place] Coma Scale Verbal: Oriented [place] Coma Scale Motor: Obeys Commands [place] Coma Scale Total: 15 Speech: Normal Sensory: Normal - Psychological Associated symptoms: Normal affect, Normal mood - Skin Skin Temperature: Warm Skin Moisture: Dry Skin Color: Normal Course - Re-evaluation Re-evalutation: 07/25/20 13:27 Patient resting comfortably at this time patient states she has chronic pain and that her pain today is no worse than any other day. - Vital Signs Vital signs: Temp Pulse Resp BP Pulse Ox 98.1 F 113 H 20 124/72 95 07/25/20 11:13 07/25/20 11:13 07/25/20 11:13 07/25/20 11:13 07/25/20 11:13 07/25/20 13:27 Vital signs stable except for patient is chronic A. fib variable heart rate between 101 10. - Laboratory Result Diagrams: 07/25/20 12:21 07/25/20 12:21 Laboratory results interpreted by me: 07/25/20 07/25/20 12:21 12:21 RDW 14.7 H Sodium 136.6 L Potassium 5.3 H Glucose 167 H Direct Bilirubin 0.6 H Patient's laboratories within normal range except for potassium of 5.3 glucose of 167 and a sodium of 136. No significant abnormal laboratories. - Diagnostic Test Radiology reviewed: Image reviewed, Reports reviewed Radiology results interpreted by me: 07/25/20 13:29 Chest X-Ray 07/25/20 11:12 IMPRESSION: No interval change in the chest. Prominent interstitial markings. Stable small left effusion. Shoulder X-Ray 07/25/20 11:12 IMPRESSION: NEGATIVE STUDY OF THE RIGHT SHOULDER. NO RADIOGRAPHIC EVIDENCE OF ACUTE INJURY. Head CT 07/25/20 11:13 IMPRESSION: Mild involutional changes and mild chronic microvascular ischemia. No acute intracranial imaging findings. EVIDENCE OF ACUTE STROKE: NO. Chest x-ray shows no acute process small left pleural effusion is stable. Shoulder x-ray shows no acute injury or fracture or dislocation. Head CT without contrast shows no evidence of an acute stroke no acute intracranial findings. Patient has mild chronic microvascular ischemia. - EKG Interpretation by Me Additional EKG results interpreted by me: 07/25/20 13:30 Twelve-lead EKG shows a atrial fibrillation rate of 110 occasional PVCs. [place] interval is variable QRS within normal limits QT interval borderline prolongation. [place] is a normal axis no acute ST elevation to suggest STEMI. Discharge - Discharge Clinical Impression: Chronic pain, Sprain of right shoulder, Chronic atrial fibrillation Condition: Stable Disposition: HOME, SELF-CARE Additional Instructions: Chronic Pain Control Stress, inactivity, and depression make pain more severe regardless of the cause of the pain. Stress and poor physical condition can cause pain such as headaches and backache. Relaxation: Rest in a quiet place with your eyes closed for 20 minutes twice daily. Concentrate on a pleasant image, or simply "feel" your breathing. Clear your mind. Stress management: Deal with your "stressors." Either take action, or eliminate the stressor from your life. Don't let things hang over you. Accept those things you can't change. Nutrition: Eat small, balanced meals -- don't skip, don't overeat. Meals should be high-carbohydrate, low-sugar, low-fat. Exercise: Exercise helps painful conditions and eases stress. Get 30 min utes of moderate exercise, five days a week. Do an activity that does not flare your pain. Precautions: Pain which continues to disrupt daily activities, or which changes in nature, requires a medical evaluation. Pain Clinic referral is available. We do not manage chronic pain in the Emergency Department. We will try to appropriately help you through an acute flare of your chronic painful condition, but for on-going chronic pain that does not improve, you will need to see your private doctor or painter supervisor. We do not provide repeated medication management of chronic painful conditions. If you wish, we can provide the name of local pain management physicians.Chronic Back Pain Chronic back pain (pain persisting longer than three months) is a common problem. A medical evaluation can look for herniated disc, arthritis, osteoporos is, tumors, and infections. But at least half the time, there's no obvious treatable cause. Anxiety and depression tend to worsen back pain. Ibuprofen or other anti-inflammatory medicine can help. A heating pad, used for 15-20 minutes at a time, can ease pain. For this type of back pain, narcot ic medicines should be avoided. Muscle relaxers are rarely helpful unless you're having spasms. Activity is important. Find an aerobic exercise program that your back can tolerate. Too much rest makes back pain worse. Specific back exercises are usually prescribed to strengthen the back and abdominal muscles. Often, a physical therapist can help. Avoid heavy lifting, working while bent over, or standing with both knees straight. Most back pain patients do better with a firm mattress. If new symptoms of a "herniated disc" (radiation of pain, numbness, or tingling down the back of the leg or weakness in the leg) occur, you should be re-examined You fell recently and injured your right shoulder. Today's x-rays does not show that there is any fracture dislocation or any evidence for an acute injury. We recommend you continue to take the medications that you currently take for pain management. Referrals: LINETTE GAN MD [Primary Care Provider] - Follow up as needed I personally performed the services described in the documentation, reviewed and edited the documentation which was dictated to the scribe in my presence, and it accurately records my words and actions.
[2020-07-25 14:15] VITALS: BP 161/87
== END 2020-07-25 14:15 | disposition home or self-care (01) ==
LOC: ER 10:46
DX: I48.20 Chronic atrial fibrillation, unspecified (principal); S43.401A Unspecified sprain of right shoulder joint, initial encounter; W18.30XA Fall on same level, unspecified, initial encounter; G89.29 Other chronic pain; M54.9 Dorsalgia, unspecified; E11.9 Type 2 diabetes mellitus without complications; I10 Essential (primary) hypertension; J44.9 Chronic obstructive pulmonary disease, unspecified; Z88.6 Allergy status to analgesic agent
CPT/HCPCS: 93005; 99285; 96360; 36415; 82550; 85025; 80053; 71046; 73030; 70450; 93010; J7040